=== PATIENT | male | born 1970 | race Caucasian/White ===

== ENCOUNTER 2017-07-02 20:51 | Emergency (ER) | payer SELFPAY ==
[~2017-07-02] VITALS: Ht 185.4 cm; Wt 69.1 kg
[2017-07-02 21:27] LABS: AMPHETAMINE NEGATIVE (500 ng/mL); BARBITURATES NEGATIVE (200 ng/mL); BENZODIAZEPINES PRESUMPTIVE POSITIVE (150 ng/mL); BUPRENORPHINE NEGATIVE (10 ng/mL); COCAINE NEGATIVE (150 ng/mL); METHADONE NEGATIVE (200 ng/mL); METHAMPHETAMINE NEGATIVE (500 ng/mL); OPIATES (MORPHINE) NEGATIVE (100 ng/mL); OXYCODONE NEGATIVE (100 ng/mL); PHENCYCLIDINE NEGATIVE (25 ng/mL); PROPOXYPHENE NEGATIVE (300 ng/mL); THC CANNABINOIDS NEGATIVE (50 ng/mL); TRICYCLIC ANTIDEPRESSANTS NEGATIVE (300 ng/mL)
[2017-07-02 22:02] LABS: HEMATOCRIT 48.5 % (38.0-50.0); HEMOGLOBIN 16.3 G/DL (12.5-16.6); MCH 31.8 PG (29.0-34.0); MCHC 33.6 G/DL (30.0-36.0); MCV 94.7 FL (86-99); PLATELET COUNT 231 K/uL (156-360); RBC DIS.WIDTH-CV 12.8 % (11.8-14.6); RBC DIS.WIDTH-SD 44.8 % (39-53); RED BLOOD COUNT 5.12 M/uL (4.00-5.50); WHITE BLOOD COUNT 8.8 K/uL (4.1-10.2)
[2017-07-02 22:13] LABS: CHLORIDE 110 mEq/L (99-109); SODIUM 148 mEq/L (136-147)
[2017-07-02 22:15] LABS: GLUCOSE 95 mg/dL (70-99)
[2017-07-02 22:18] LABS: SERUM ETHYL ALCOHOL 125 mg/dL
[2017-07-02 22:19] LABS: GFR ESTIMATE (CALCULATED) > 59 mL/min/ (58.99-99999)
[2017-07-02 22:20] LABS: UREA NITROGEN (BUN) 10 mg/dL (9-23)
[2017-07-02 22:21] LABS: ACETAMINOPHEN (TYLENOL) < 10 mcg/mL (10-30)
[2017-07-02 23:40] VITALS: BP 128/87
[2017-07-03 03:26] LABS: BENZODIAZEPINES, URINE SCREEN POSITIVE (200 ng/mL)
== END 2017-07-02 23:43 | disposition home or self-care (01) ==
LOC: EME 20:51
PROVIDERS: Emergency Medicine Emergency Medical Services
DX: F10.129 Alcohol abuse with intoxication, unspecified (principal); Y90.6 Blood alcohol level of 120-199 mg/100 ml; F19.10 Other psychoactive substance abuse, uncomplicated; F33.9 Major depressive disorder, recurrent, unspecified; Z86.73 Personal history of transient ischemic attack (TIA), and cerebral infarction without residual deficits
CPT/HCPCS: 80048; 84999; 85027; 90839; 99281; 99285; G0480